=== PATIENT | male | born 2000 | race African-American/Black ===

== ENCOUNTER 2024-10-20 16:25 | Observation (INO) | payer OTHER ==
[~2024-10-20] VITALS: Ht 180.3 cm; Wt 105.7 kg
[~2024-10-20 16:25] MED LIST: CRUTCH4 USE
[2024-10-20 16:40] VITALS: BP 148/92
[2024-10-20 17:25] LABS: BASOPHILS ABSOLUTE AUTO 0.06 K/mm3 (0.00-0.23); BASOPHILS PERCENT AUTO 1 % (0-2); EOSINOPHILS ABSOLUTE AUTO 0.26 K/mm3 (0.00-0.68); EOSINOPHILS PERCENT AUTO 3 % (0-6); Hematocrit 46.4 % (37.0-53.0); Hemoglobin 15.3 g/dL (13.5-17.5); IMMATURE GRAN ABSOLUTE AUTO 0.02 K/mm3 (0.00-0.10); IMMATURE GRAN PERCENT AUTO 0 % (0-1); LYMPHOCYTES ABSOLUTE AUTO 2.25 K/mm3 (0.84-5.20); LYMPHOCYTES PERCENT AUTO 27 % (21-46); MONOCYTES ABSOLUTE AUTO 0.62 K/mm3 (0.16-1.47); MONOCYTES PERCENT AUTO 7 % (4-13); Mean Corpuscular HGB 31.1 pg (26.0-34.0); Mean Corpuscular Volume 94 fL (80-100); Mean Platelet Volume 11.6 fL (9.1-12.4); NEUTROPHILS ABSOLUTE AUTO 5.24 K/mm3 (1.96-9.15); NEUTROPHILS PERCENT AUTO 62 % (41-73); Platelet Count 275 K/mm3 (150-400); RDW Coefficient Variation 11.6 % (11.7-14.2); RDW Standard Deviation 40.3 fL (35.1-46.3); Red Blood Cell Count 4.92 M/mm3 (4.30-5.90); White Blood Cell Count 8.45 K/mm3 (4.00-11.30)
[2024-10-20 17:44] LABS: Ethanol (Alcohol), Blood, Med <3 mg/dL; Salicylate <1.7 mg/dL (2.8-20.0)
[2024-10-20 17:48] LABS: Acetaminophen, Random <2.0 ug/mL (10.0-30.0); Alanine Aminotransfer (ALT/SGP 26 U/L (12-78); Albumin, Blood 4.3 g/dL (3.4-5.0); Albumin/Globulin Ratio 1.1 (0.8-1.8); Alk Phos 61 U/L (50-136); Anion Gap 8 mmol/L (3-11); Aspartate Aminotrans (AST/SGOT 13 U/L (12-37); Bilirubin, Total 0.5 mg/dL (0.1-1.0); Blood Urea Nitrogen 11 mg/dL (8-24); Bun/Creatinine Ratio 12.4 (12.0-20.0); CO2, Blood 30 mmol/L (21-32); Calcium, Blood 9.6 mg/dL (8.5-10.1); Chloride, Blood 104 mmol/L (98-108); Creatinine, Blood 0.89 mg/dL (0.60-1.20); Glomerular Filtration Rate 121 (60-); Glucose, Blood 90 mg/dL (70-99); Potassium, Blood 3.8 mmol/L (3.5-5.5); Sodium, Blood 138 mmol/L (136-145); Total Protein, Blood 8.3 g/dL (6.4-8.2)
[2024-10-20 18:53] LABS: U Amphetamine Screen Not Detected; U Barbituate Screen Not Detected; U Benzodiazapine Screen Not Detected; U Buprenorphine Screen Not Detected; U Cannabinoids Screen DETECTED; U Cocaine Screen Not Detected; U Methadone Screen Not Detected; U Methamphetamine Screen Not Detected; U Opiates Screen Not Detected; U Oxycodone Screen Not Detected; U Phencyclidine Screen Not Detected
[2024-10-20] MEDS ORDERED: LORazepam 1 MG Tab PO ONE ×2 (19:55→23:20)
[2024-10-20] MEDS ORDERED: OLANZapine 10 MG Tab PO SCH (21:00)
[2024-10-20 21:13] LABS: Influenza A, PCR NEGATIVE (NEGATIVE); Influenza B, PCR NEGATIVE (NEGATIVE); Resp Syncytial Virus, PCR NEGATIVE (NEGATIVE); SARS-Cov-2 (COVID-19) PCR, MMC NEGATIVE (NEGATIVE)
[2024-10-20] MEDS ORDERED: HyDROXyzine HCl 25 MG Tab PO PRN (23:20)
[2024-10-21] MEDS ORDERED: HYDHCL25 PO (04:27)
[2024-10-26] MEDS ORDERED: OLAN20 MM (11:05)
== END 2024-10-22 18:25 ==
LOC: ER 16:25 → EOR 16:26
PROVIDERS: ADMIT Emergency Medicine
DX: F20.9 Schizophrenia, unspecified (principal)
CPT/HCPCS: 0241U; 80053; 80320; 85025; 99285; A9270; G0378; G0480

== ENCOUNTER 2024-10-21 08:16 | Observation (INO) | payer OTHER ==
[~2024-10-21] VITALS: Ht 182.9 cm; Wt 90.7 kg
[~2024-10-21 08:16] MED LIST changes: +HYDHCL25 PO
[2024-10-21 10:04] VITALS: BP 142/79
[2024-10-21 16:58] LABS: U Amphetamine Screen Not Detected; U Barbituate Screen Not Detected; U Benzodiazapine Screen DETECTED; U Buprenorphine Screen Not Detected; U Cannabinoids Screen DETECTED; U Cocaine Screen Not Detected; U Methadone Screen Not Detected; U Methamphetamine Screen Not Detected; U Opiates Screen Not Detected; U Oxycodone Screen Not Detected; U Phencyclidine Screen Not Detected
[2024-10-26] MEDS ORDERED: OLAN20 MM (11:05)
== END 2024-10-21 18:25 ==
LOC: ER 08:16 → EOR 08:17 → EDBEDREQ 14:15 → EDBEDREQTM 14:15 → EDBEDREQSVC 14:15 → EOR 15:50
PROVIDERS: ADMIT Student in an Organized Health Care Education/Training Program
DX: F20.9 Schizophrenia, unspecified (principal); R45.850 Homicidal ideations
CPT/HCPCS: 99285; G0378

== ENCOUNTER 2024-10-21 12:52 | Inpatient (IN) | payer OTHER ==
[~2024-10-21] VITALS: Ht 180.3 cm; Wt 102.2 kg
[2024-10-21] MEDS ORDERED: FLU VACC TS2024-25(6MOS UP)/PF 45 MCG/0.5 ML SYRINGE IM SCH (15:45)
[2024-10-21] MEDS ORDERED: Calcium Carbonate 500 MG Tab Chew PO PRN (15:45)
[2024-10-21] MEDS ORDERED: Acetaminophen 325 MG TABLET PO PRN (15:45)
[2024-10-21] MEDS ORDERED: Melatonin 3 MG Tab PO PRN (15:45)
[2024-10-21] MEDS ORDERED: Aluminum Hydroxide 320MG/5ML 473 ML PO PRN (15:45)
[2024-10-21] MEDS ORDERED: OLANZapine ODT 10 MG Tab MM PRN (15:50)
[2024-10-21] MEDS ORDERED: TraZODone HCl 50 MG Tab PO PRN (15:50)
[2024-10-21] MEDS ORDERED: Ibuprofen 600 MG Tab PO PRN (15:50)
[2024-10-21] MEDS ORDERED: HydrOXYzine Pamoate 50 MG Cap PO PRN (15:50)
[2024-10-21] MEDS ORDERED: Polyethylene Glycol 3350 17 gm PO PRN (15:50)
[2024-10-21 16:05] VITALS: BP 134/78
[2024-10-21] MEDS ORDERED: Ondansetron 4 MG SoluTab MM PRN (16:30)
--- NOTE | 2024-10-21 17:38 | NUR ---
ADMISSION NOTE PT ARRIVED TO [facility] AT 1549 COMING FROM [facility], ESCORTED BY AGUILA CROUCH AND SECURITY. PT BELONGINGS COLLECTED AND STORED SECURILY. PT CHANGED INTO [facility] GREEN SCRUBS, SKIN CHECK COMPLETED BY THIS RN AND JASMYN CORTEZ. ONLY ISSUE FOUND IS A 3cm ABRASION TO BACK OF R SHOULDER. HE OBTAINED THIS WHEN HE FELL WHILE RUNNING AWAY FROM THE ER. HE WAS INITIALLY THERE VOLUNTARILY AND WANTED TO LEAVE. HE FELT HE HAD TO RUN TO GET AWAY, TRIPPED AND FELL. NO BLEEDING, JUST AN ABRASION. PT IS HERE LIVING WITH HIS FATHER, HIS MOTHER IS IN [facility]. HE LIVED WITH HER UNTIL AROUND 2020 AND SHE KICKED HIM OUT BECAUSE "I THREATENED HER ALL THE TIME." PT DENIES SI BUT ENDORSE IDEAS OF WANTING TO HURT PEOPLE PHYSICALLY WHEN THEY HURT HIM EMOTIONALLY. 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 LAST INJECTION WAS AT [facility] AROUND 10/12/24. PT IS VERY SLOW IN EXPRESSING HIMSELF VERBALLY, APPEARS VERY LOST IN THOUGHT OR DIFFICULTY GETTING WORDS OUT. HE IDENTIFIED DIFFICULTY READING, INTAKE WAS DIFFICULT TO COMPLETE WITH HIM DUE TO THIS. PT WAS OREINTED TO THE UNIT, SHOWERED AND IS AT DINNER AT THIS TIME
[2024-10-21 19:52] VITALS: BP 135/84
--- NOTE | 2024-10-22 05:21 | NUR ---
SHIFT SUMMARY PATIENT UP IN BROWN FOLLOWING MIKO MHA AROUND THE UNIT WANTING 1:1 CONVERSATION. WHEN MIKO WAS BUSY PATIENT COMING UP TO NURSES STATION VERBALIZED THAT HE NEEDED TO TALK WITH SOMEONE. WHEN ASKED QUESTIONS PATIENT WAS SLOW TO ANSWER AND AT TIMES NEEDING TO REPEAT THE QUESTION. NOT ALWAYS MAKING EYE CONTACT. DIFFICULT TO ASSESS DUE TO PATIENT NOT ALWAYS ANSWERING QUESTION. WHEN OFFERED A JOURNAL TO HELP ORGANIZE HIS THOUGHTS, PATIENT AT FIRST AGREE THEN DECLINED TO TAKE IT WHEN OFFERED. DENIES SI, HI, AVH. COOPERATIVE WITH MEDICATIONS. SLEEPING OFF AND ON T/O THE NIGHT MEDICATED PER EMAR. CONTINUE TO MONITOR Q15MIN
[2024-10-22 08:07] VITALS: BP 146/91
[2024-10-22] MEDS ORDERED: Multivitamins 1 Tab PO SCH (09:00)
[2024-10-22] MEDS ORDERED: Paliperidone Palmitate 156 MG/ML SYR IM SCH (11:40)
[2024-10-22] MEDS ORDERED: Ziprasidone Mesylate 20 MG / Vial IM PRN (12:40)
[2024-10-22] MEDS ORDERED: OLANZapine ODT 10 MG Tab MM PRN (12:40)
--- NOTE | 2024-10-22 15:53 | NUR ---
SHIFT SUMMARY PT WAS AWAKE AT START OF SHIFT AND IN THE SHOWER. HE HAS DENIED SI/HI/AVH AT THIS POINT IN THE SHIFT. HE HAS MULTIPLE/MULTIPLE TIMES ATTEMPTED TO GET STAFF TO SIT AND TALK WITH HIM. "CAN I TALK TO YOU PRIVATLEY" "I NEED TO TELL YOU SOMETHING". WHEN ATTEMPTING TO TALK TO PT, HE ONLY STS "I NEED TO TALK ABOUT MY FEELINGS" AND HE STARTS CRYING AND WILL NOT SAY ANYTHING ELSE. EVEN WHEN GIVEN OPEN ENDED QUESTIONS. HE HAS MANAGED TO HAVE EACH STAFF MEMBER INVOLVED IN THIS BEHAVIOR. HE IS DIRECTABLE WHEN GIVEN DIRECT AND FIRM INSTRUCTION WITHOUT OPTIONS. PT MANAGED TO SLEEP ONLY FOR APPROX 45 AFTER RECEIVING ZYDIS AT APPROX 1300. HE HAS SINCE BEEN UP PARTICIPATING IN THE AFFiRiS OR WALKING AROUND, PACING. PT HAS HAD Q15 MIN SAFETY CHECKS TO ENSURE HIS SAFETY
[2024-10-22 20:37] VITALS: BP 139/80
[2024-10-22] MEDS ORDERED: OLANZapine 5 MG Tab PO SCH (21:00)
[2024-10-22] MEDS ORDERED: OLANZapine 10 MG Tab PO SCH (21:00)
[2024-10-22] MEDS ORDERED: Paliperidone 1.5 MG TAB.ER.24 PO SCH (21:00)
--- NOTE | 2024-10-23 05:30 | NUR ---
SHIFT SUMMARY: PT ALERT AND ORIENTED X3. PT CAME TO THE NURSES STATION FREQUETTLY AT THE BEGINNING OF THE SHIFT. HE WANTED PRUNE JUICE, BUT WAS GIVEN CRANEBERRY NO PRUNE AVIALBLE. HE THEN WENT TO BED AND CAME OUT A FEW TIMES TO STAND AT THE COUNTER WITH A BLANK STARE, WHEN ASKED IF HE NEEDED SOMETHING HE WOULD WHISPER " I NEED TO TALK TO YOU, OR CAN I TALK TO YOU. ASKED WHAT ABOUT AND HE WOULD NOT SAY. REDIRECTED TO RETURN TO HIS ROOM TO GET SOME SLEEP. PT'S EYE WERE BRIGHT AND LOOKED LIKE HE WAS SLEEPY. FEEL ASLEEP ABOUT 2230, CAME OUT AGAIN ROUND 0130. ENCOURAGED TO RETURN TO BED AND TRY TO SLEEP. HE DID NOT COME OUT ANYMORE. APPEARED TO BE SLEEPING ON ROUNDS. PT HAS SLOW THINKING PROCESS AND FLAT AFFECT PRESENT. WILL CONTINUR TO MONITOR
[2024-10-23 08:25] VITALS: BP 151/99
[2024-10-23 20:29] VITALS: BP 154/105
--- NOTE | 2024-10-23 22:10 | NUR ---
PT HAS BEEN UP PACING THE HALLWAYS. BP 154/105 AT THE BEGINNING OF THE SHIFT. BP NOW 150/105 PULSE 97. PT CONTINUES TO PACE THE BROWN AND REFUSED HIS ZYPREXA MED. REFUSED OFFER OF MELATONIN AND VISTARIL.. HAS SPOKEN TO FATHER ON THE PHONE A COUPLE OF MORE TIMES. LET PT KNOW THAT HE NEEDS TO LAY DOWN AND REST. PT REFUSED A 3RD SET OF VITAL SIGNS AND PHYSICAL ASSESSSMENT WHEN WANTING TO MAKE SURE HE IS ALRIGHT.
--- NOTE | 2024-10-23 22:23 | NUR ---
PT STATED THAT HIS HR IS IRREGULAR. LISTENED TO HEART BEAT AND SOUNDS REGULAR AT THIS TIME, BUT STILL REFUSES RETAKE ON VITAL SIGNS.
--- NOTE | 2024-10-24 04:14 | NUR ---
SHIFT SUMMARY: PT UP AT THIS TIME WANTING TO USE THE PHONE. LET PT KNOW IT IS 0402 IN THE MORNING AND UNABLE TO USE THE PHONE. PT'S ROOM MATE CAME OUT OF THE ROOM UPSET AND SAYING THAT THE PT WAS HANGING OVER HIM IN HIS BED. WENT TO ROOM AND CHECKED ON PT. SITTING ON SIDE OF BED WITH BLANK STARE. CALLED NAME OUT AND IDENTIFIED THIS RN AND THERE TO HELP HIM. WAS GIVEN OLANZAPINE 10 MG MM. HAD TO CALL SECURITY TO COME OVER PT BECAME MORE AGGRESSIVE IN POSTURE STARTING TO SET IN. ROOMMATE MOVED TO SAFE PLACE AND FINALLY PT TOOK THE MED. PT THEN BEGAN PACING THE HALLWAY AGAIN. PT WAS MOVING TOWARDS STAFF MEMBER AGGRESSIVELY. SECURITY RECALLED TO COME BACK OVER. DR DEL VALLE CALLED AND ORDERS GIVEN. PT WAS GIVEN GEODON 10MG IM INTO LEFT DELTOID. SECURITY AT BEDSIDE ON MED INJECTION. 0517 PT UP AMBULATING IN HALLWAY, ENCOURAGED TO RETURN TO ROOM AND LET MEDICATION HELP HIM. SECURITY DEPARTED PT RETURNED TO ROOM. WILL CONTINUE TO MONITOR.
[2024-10-24] MEDS ORDERED: Divalproex Sodium 500 MG TABLET.DR PO ONE (11:00)
--- NOTE | 2024-10-24 18:24 | NUR ---
SHIFT SUMMARY PT AxOx2- PERSON AND PLACE. PT HAS NON BEEN PLEASANT OR COOPERATIVE THIS SHIFT. HE HAS BEEN PACING THE HALLS, PRIMARILY IN FRONT OF THE NURSE'S STATION MOST OF THE DAY. PT IS QUITE DELUSIONAL AND UNABLE TO CARRY ON A COMPREHENSIVE CONVERSATION. PT OFTEN WALKS UP TO STAFF AND ASKS TO TALK WITH THEM, THEN STARES BLANKELY WHEN THEY ASK WHAT HE WANTS TO TALK ABOUT. PT WAS REFUSING MEDICATIONS THIS AM AND DECLINED TO ATTEND GROUPS TODAY. HE HAS ALSO SLAMMED DOORS, ATTEMPTED TO PUSH THROUGH AN OPEN DOOR, MADE MULTIPLE AGGRAVATING COMMENTS TO PEERS AND HAS INTERMITTENTLY SHOUTED OUT. SPOKE WITH PATIENT'S MOTHER ON PHONE TODAY, WHO REITERATED THAT HE WASN'T MAKING SENSE WHEN SHE TALKED WITH HIM AND HE WAS MAKING AGGRESSIVE COMMENTS TO HER. DIRECTOR OF UNIT MET WITH PATIENT AND HIS FATHER LATER THIS AFTERNOON DURING SCHEDULED VISIT. AFTER ABOUT AN HOUR, THE PATIENT AGREED TO TAKE HIS MEDICATION AND HE WAS GIVEN ORDERED SCHEDULED MEDS ALONG WITH AVAILABLE PRN'S. THIS RN SAW NO CHANGE IN THE PATIENT'S BEHAVIOR. HE DID NOT SLEEP FOR ANY PERIOD OF TIME TODAY. PT IS CURRENTLY ENGAGED IN A POWER STRUGGLE WITH ONCOMING BRASS PICKLER ABOUT GIVING THE PHONE BACK AFTER PHONE TIME HAS ENDED. SECURITY BEING CALLED FOR NICHOLE. PT IS STILL CALM AND IGNORING STAFF AT THIS TIME, SEEMS TO BE APPEARING TO BE SPEAKING ON THE PHONE.
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
[2024-10-24] MEDS ORDERED: Divalproex Sodium 500 MG TABLET.DR PO SCH (21:00)
--- NOTE | 2024-10-24 22:55 | NUR ---
Patient c/o palpitations. This RN listened to his chest, and although the rate was regular between 100 and a few minutes later up to 120, the patient continued to refuse vital signs which this RN told him would be needed in order to call the DrBrittaney and ask for an EKG. Patient then stated he wanted to sleep in the seclusion room which he was told was off limits. He finally agreed to sit in the sensory room, but then asked if he should masterbate while he was in there or sing. Patient began to sing quite loudly and was told security would be called if he didn't stop. will continue close monitoring every 5 - 15 minutes.
[2024-10-25] MEDS ORDERED: OLANZapine 10 MG Vial IM ONE (01:05)
[2024-10-25] MEDS ORDERED: DiphenhydrAMINE HCl 50 MG/ML 1ML Vial IM ONE (03:00)
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
--- NOTE | 2024-10-25 08:59 | NUR ---
NURSE NOTE PT WOKE AT ABOUT 08:45 AND STOOD AT NURSE STATION SPEAKING WITH CLEAR WORDS THAT DD NOT HAVE CONTEXT. PT PACIN THE HALLWAY. HE ENTERED GROUP AND SAT DOWN FOR JUST A COUPLE MINUTES THEN ENTERED THE HALLWAY AGAIN. HANDED PT HIS MEDS, HE PUT THEM IN HIS MOUTH AND THEN IMMEDIATELY SPIT THEM BACK INTO THE MED CUP AND STATES "I'M NOT TAKING ANY OF THOSE." HE THEN STARTED PACING THE HALLWAY AGAIN.
--- NOTE | 2024-10-25 09:35 | NUR ---
NURSE NOTE ATTEMPTED TO PERFORM SHIFT ASSESSMENT. PT JUST LOOKS FORWARD WITH BLANK STARE AND NOT ANSWERING QUESTIONS OR PARTICIPATING. HE ENTERS GROUP, SITS FOR A VERY SHORT TIME, AND THEN LEAVES. PACING THE HALLWAYS FREQUENTLY. ASKED TO SPEAK TO DR. HALL IN PRIVATE AND PT STOOD SILENT AND THEN JUST TURNED AROUND AND LEFT. UNABLE TO PERFORM ASSESSMENT. WILL CONTINUE WITH PATIENT SAFETY CHECKS EVERY 15 MINUTES.
[2024-10-25] MEDS ORDERED: LORazepam 2 MG/ML 1ML Injection ONE (10:58)
[2024-10-25] MEDS ORDERED: LORazepam 2 MG/ML 1ML Injection IM PRN (11:00)
[2024-10-25] MEDS ORDERED: DiphenhydrAMINE HCl 50 MG/ML 1ML Vial IM PRN (11:00)
[2024-10-25] MEDS ORDERED: OLANZapine 10 MG Vial ONE (11:00)
[2024-10-25] MEDS ORDERED: Divalproex Sodium 500 MG TABCR PO SCH ×3 (17:05→21:00)
--- NOTE | 2024-10-25 17:41 | NUR ---
SHIFT SUMMARY PT WAS IN SECLUSION AT THE BEGINING OF THIS SHIFT. HE HAD 1:1 SITTER WITHIN LINE OF VIEW IN THE SECLUSION HOLD ROOM. PT WAS GIVEN Q15 MIN CHECKS. HE WA SLEEPING AT THE BEGINNING OF SHIFT UNTIL HE WOKE SHORTLY AFTER 0800 AND IMMEDIATELY BEGAN AMBULATING AROUND UNIT ON HIS OWN. PT WAS AWAKE, REFUSED MEAL AND GROUP PARTICIPATION. HE WAS ACTING ANTAGONISTIC AND SOMEWHAT IRRITABLE. HE WENT INTO BREAKFAST, BUT ONLY FOR A MINUTE OR TWO BEFORE RETURNING TO THE HALLWAY TO PACE. PT WAS NONCOMPLIAT WITH MORINING MEDS AND SPIT THEM OUT AFTER INGESTING INTO MOUTH. HE REFUSED TO EAT BREAKFAST AND LUNCH. HE HAD MINIMAL SNACKS AND ATE HIS DINNER MEAL WHILE HIS FATHER WAS IN FOR A VISIT. HE AGREED TO TAKE MEDS WHILE HIS FATHER WAS HERE FOR A VISIT. PT MEDICATED WITH HS PO MEDS. WE WILL CONTINUE WITH Q15 CHECKS PER PROTOCOL.
[2024-10-25] MEDS ORDERED: OLANZapine 10 MG Tab PO SCH (21:00)
--- NOTE | 2024-10-25 22:07 | NUR ---
Patient hs continued to catch up on his sleep since prior to the start of shift. Will continue close monitoring with every 15 minute checks for comfort and safety.
--- NOTE | 2024-10-26 00:30 | NUR ---
Still sleeping. Safety checks continue every 15 minutes
--- NOTE | 2024-10-26 00:50 | NUR ---
Pt oob to desk stating "I see you are already talking about me". Asked for water and stated he was "seeing red". After being given water, the patient went back to bed. "the day is just getting started", he said. will continue close monitoring
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
--- NOTE | 2024-10-26 08:51 | NUR ---
PATIENT DID ALLOW RN TO SIT WITH HIM THROUGH BREAKFAST THIS AM HOWEVER, HE DID GET AGITATED WHEN ASKED IF HE WOULD BE COMPLIANT WITH MORNING MEDICATIONS AND VS. HE REFUSED AND ASKED TO BE DISCHARGED HOME. I INFORMED HIM THE DOCTOR WOULD BE IN AROUND 10 THIS MORNING AND WE WOULD DISCUSS HIS DISCHARGE HOME. HE DID EAT A GOOD BREAKFAST = A BOWEL OF CERIAL, 2 HASHBROWNS, MILK AND AN ORANGE. WHEN DEEJAY DID THEIR ROUNDS THIS MORNING, CESAR BECAME VERY AGITATED AND THREW HIS WATER ACROSS THE HALLWAY FLOOR. HE WAS HANDED A TOWEL TO CLEAN UP HIS MESS AND HE AGRESSIVELY TOOK THE TOWEL FROM NURSE RENETTA'S HAND. CESAR CONTINUES TO REFUSE HIS POC, DEMONSTRATE AGGRESSION, AGITATION, AND ANXIETY. WE WILL CONTINUE TO TRY AND REDIRECT HIS BEHAVIORS AND OFFER CESAR SOLUTIONS TO HIS AGITATION.
[2024-10-26] MEDS ORDERED: DIVA500ER PO (11:05)
[2024-10-26] MEDS ORDERED: OLAN20 MM ×2 (11:05→11:06)
--- NOTE | 2024-10-26 11:32 | NUR ---
DISCHARGE NOTE PT MEDICATED WITH VISTARIL AND ZYPREXA AROUND 1051 FOR ANXIETY. PT COOPERATIVE AT THIS TIME TO TAKE PO MEDS D/T HE IS BEING D/C'D HOME WITH FATHER. D/C INSTRUCTIONS WITH NEW MEDS GIVEN TO PT'S DAD. DAD STATES UNDERSTANDING. PT GIVEN HIS BELONGINGS BY A. PT AMBULATED OUT OF [facility] WITH HIS DAD COOPERATIVELY, CALMLY, AND WITH A STEADY GAIT.
--- NOTE | 2024-10-26 16:55 | NUR ---
LATE NOTE FROM 10/25/24 Restraint orders for medication administration and seclusion received by Dr. Maradiaga at 0101. Zyyprexa given at 0115. Restraint order complete at 0118. Patient seclusion order documented as start of 0237, but actual time 0118. Additional restraint order given by Dr. Maradiaga for medication administration at 0237. Order completed at 0250, patient remained in seclusion. Late entry by this RN to clarify order times for accuracy. in documentation.
[2024-11-11] MEDS ORDERED: Paliperidone Palmitate 156 MG/ML SYR IM SCH (09:00)
== END 2024-10-26 11:30 | disposition home or self-care (01) | DRG 885 ==
LOC: BHU 12:52
PROVIDERS: ADMIT Psychiatry & Neurology Psychiatry
DX: F31.2 Bipolar disorder, current episode manic severe with psychotic features (principal); F12.19 Cannabis abuse with unspecified cannabis-induced disorder; F13.10 Sedative, hypnotic or anxiolytic abuse, uncomplicated; Z88.8 Allergy status to other drugs, medicaments and biological substances; Z79.1 Long term (current) use of non-steroidal anti-inflammatories (NSAID); Z79.899 Other long term (current) drug therapy
CPT/HCPCS: A9270; J1200; J2060; J3486